=== PATIENT | female | born 1975 ===

== ENCOUNTER 2018-04-25 12:23 | Outpatient (CLI) | payer OTHER | END 2018-04-25 12:24 | disposition home or self-care (01) | LOC: C.MAMMO 12:23 | DX: Z12.31 Encounter for screening mammogram for malignant neoplasm of breast (principal) ==

== ENCOUNTER 2018-05-16 13:21 | Outpatient (CLI) | payer OTHER | END 2018-05-16 13:22 | disposition home or self-care (01) | LOC: C.MAMMO 13:21 ==